=== PATIENT | male | born 1955 | race Caucasian/White ===

== ENCOUNTER 2017-09-23 21:51 | Inpatient (IN) | payer OTHER ==
[~2017-09-23] VITALS: Ht 175.3 cm; Wt 56.7 kg
[~2017-09-23 21:51] MED LIST: MOTRIN600 MG PO; PERCOCET 5/31 TABLET PO; PRILOSEC10 MG PO
[2017-09-24 00:34] LABS: BASOPHIL (%) 0.3 % (0-1); BASOPHIL COUNT 0.1 K/uL (0-0.1); EOSINOPHIL (%) 0.8 % (0-5); EOSINOPHIL COUNT 0.1 K/uL (0-0.3); HEMATOCRIT 41.4 % (38.0-50.0); HEMOGLOBIN 14.2 G/DL (12.5-16.6); IMMATURE GRANULOCYTE (%) 0.9 % (0.0-0.7); LYMPHOCYTE COUNT 1.5 K/uL (1.0-2.8); MCH 31.8 PG (29.0-34.0); MCHC 34.3 G/DL (30.0-36.0); MCV 92.8 FL (86-99); MONOCYTE (%) 12.1 % (3-12); MONOCYTE COUNT 1.8 K/uL (0-0.8); NEUTROPHIL (%) 75.9 % (45-76); NEUTROPHIL COUNT 11.5 K/uL (1.8-6.4); PLATELET COUNT 414 K/uL (156-360); RBC DIS.WIDTH-CV 12.1 % (11.8-14.6); RBC DIS.WIDTH-SD 41.7 % (39-53); RED BLOOD COUNT 4.46 M/uL (4.00-5.50); WHITE BLOOD COUNT 15.2 K/uL (4.1-10.2)
[2017-09-24 00:45] LABS: CHLORIDE 99 mEq/L (99-109); POTASSIUM 3.7 mEq/L (3.7-5.4); SODIUM 137 mEq/L (136-147)
[2017-09-24 00:47] LABS: GLUCOSE 204 mg/dL (70-99)
[2017-09-24 00:50] LABS: CREATININE 0.9 mg/dL (0.6-1.3); GFR ESTIMATE (CALCULATED) > 59 mL/min/ (58.99-99999)
[2017-09-24 00:51] LABS: UREA NITROGEN (BUN) 11 mg/dL (9-23)
[2017-09-24 05:54] VITALS: BP 141/64
[2017-09-24 07:32] VITALS: BP 112/65
[2017-09-24 16:02] VITALS: BP 123/65
[2017-09-24 22:49] VITALS: BP 115/59
[2017-09-25 06:26] LABS: BASOPHIL (%) 0.4 % (0-1); BASOPHIL COUNT 0.1 K/uL (0-0.1); EOSINOPHIL (%) 1.4 % (0-5); EOSINOPHIL COUNT 0.2 K/uL (0-0.3); HEMATOCRIT 37.7 % (38.0-50.0); HEMOGLOBIN 12.7 G/DL (12.5-16.6); IMMATURE GRANULOCYTE (%) 0.7 % (0.0-0.7); LYMPHOCYTE COUNT 1.5 K/uL (1.0-2.8); MCH 31.2 PG (29.0-34.0); MCHC 33.7 G/DL (30.0-36.0); MCV 92.6 FL (86-99); MONOCYTE (%) 11.9 % (3-12); MONOCYTE COUNT 1.4 K/uL (0-0.8); NEUTROPHIL (%) 73.6 % (45-76); NEUTROPHIL COUNT 8.9 K/uL (1.8-6.4); PLATELET COUNT 380 K/uL (156-360); RBC DIS.WIDTH-CV 12.1 % (11.8-14.6); RBC DIS.WIDTH-SD 41.5 % (39-53); RED BLOOD COUNT 4.07 M/uL (4.00-5.50)
[2017-09-25 06:45] VITALS: BP 142/80
[2017-09-25 06:53] LABS: ALBUMIN 2.8 G/DL (3.2-4.8); ALKALINE PHOSPHATASE 86 IU/L (3-129); ALT (GPT) 8 IU/L (3-49); AST (GOT) 13 IU/L (2-34); CHLORIDE 105 MEQ/L (99-109); CREATININE 0.8 MG/DL (0.6-1.3); GFR ESTIMATE (CALCULATED) > 59 mL/min/ (58.99-99999); GLUCOSE 130 mg/dL (70-99); POTASSIUM 3.5 MEQ/L (3.7-5.4); SODIUM 143 MEQ/L (136-147); TOTAL BILIRUBIN 0.4 MG/DL (0.0-1.0); UREA NITROGEN (BUN) 5 mg/dL (9-23)
[2017-09-25 11:03] LABS: HEMOGLOBIN A1c (GLYCOHEMOGLOB) 9.6 % (Below 5.7)
[2017-09-25 15:40] VITALS: BP 136/77
[2017-09-26 00:40] VITALS: BP 134/77
[2017-09-26 06:36] LABS: BASOPHIL (%) 0.3 % (0-1); EOSINOPHIL COUNT 0.1 K/uL (0-0.3); HEMATOCRIT 39.5 % (38.0-50.0); IMMATURE GRANULOCYTE (%) 0.6 % (0.0-0.7); LYMPHOCYTE COUNT 1.5 K/uL (1.0-2.8); MCH 30.7 PG (29.0-34.0); MCHC 32.9 G/DL (30.0-36.0); MCV 93.4 FL (86-99); MONOCYTE (%) 11.2 % (3-12); MONOCYTE COUNT 1.5 K/uL (0-0.8); NEUTROPHIL (%) 75.9 % (45-76); NEUTROPHIL COUNT 10.3 K/uL (1.8-6.4); PLATELET COUNT 395 K/uL (156-360); RBC DIS.WIDTH-CV 12.2 % (11.8-14.6); RBC DIS.WIDTH-SD 42.2 % (39-53); RED BLOOD COUNT 4.23 M/uL (4.00-5.50); WHITE BLOOD COUNT 13.5 K/uL (4.1-10.2)
[2017-09-26 06:55] VITALS: BP 130/84
[2017-09-26 07:11] LABS: ALKALINE PHOSPHATASE 97 IU/L (3-129); ALT (GPT) 8 IU/L (3-49); AST (GOT) 11 IU/L (2-34); CHLORIDE 104 MEQ/L (99-109); CREATININE 0.7 MG/DL (0.6-1.3); GFR ESTIMATE (CALCULATED) > 59 mL/min/ (58.99-99999); SODIUM 138 MEQ/L (136-147); TOTAL BILIRUBIN 0.4 MG/DL (0.0-1.0); TOTAL PROTEIN 6.5 G/DL (6.4-8.3); UREA NITROGEN (BUN) 5 mg/dL (9-23)
[2017-09-26 07:14] LABS: GLUCOSE 247 mg/dL (70-99); POTASSIUM 4.3 MEQ/L (3.7-5.4)
[2017-09-26 12:25] LABS: INTER. NORMALIZED RATIO 1.2
[2017-09-26 12:28] LABS: PTT 38.5 SEC (25-37)
[2017-09-27 00:14] VITALS: BP 95/61
[2017-09-27 07:30] VITALS: BP 109/59
[2017-09-28 06:33] LABS: BASOPHIL (%) 0.1 % (0-1); EOSINOPHIL (%) 0 % (0-5); HEMATOCRIT 39.8 % (38.0-50.0); HEMOGLOBIN 13.2 G/DL (12.5-16.6); IMMATURE GRANULOCYTE (%) 0.7 % (0.0-0.7); LYMPHOCYTE (%) 4.8 % (15-42); LYMPHOCYTE COUNT 1.2 K/uL (1.0-2.8); MCH 31.2 PG (29.0-34.0); MCHC 33.2 G/DL (30.0-36.0); MCV 94.1 FL (86-99); MONOCYTE COUNT 1.9 K/uL (0-0.8); NEUTROPHIL (%) 86.4 % (45-76); NEUTROPHIL COUNT 20.8 K/uL (1.8-6.4); PLATELET COUNT 380 K/uL (156-360); RBC DIS.WIDTH-CV 12.3 % (11.8-14.6); RBC DIS.WIDTH-SD 42.6 % (39-53); RED BLOOD COUNT 4.23 M/uL (4.00-5.50); WHITE BLOOD COUNT 24.1 K/uL (4.1-10.2)
[2017-09-28 06:47] LABS: ALKALINE PHOSPHATASE 91 IU/L (3-129); ALT (GPT) 9 IU/L (3-49); AST (GOT) 11 IU/L (2-34); CHLORIDE 101 MEQ/L (99-109); CREATININE 0.7 MG/DL (0.6-1.3); GFR ESTIMATE (CALCULATED) > 59 mL/min/ (58.99-99999); GLUCOSE 237 mg/dL (70-99); POTASSIUM 4.8 MEQ/L (3.7-5.4); SODIUM 137 MEQ/L (136-147); TOTAL BILIRUBIN 0.4 MG/DL (0.0-1.0); TOTAL PROTEIN 6.6 G/DL (6.4-8.3); UREA NITROGEN (BUN) 8 mg/dL (9-23)
[2017-09-28 12:07] VITALS: BP 118/68
[2017-09-28 17:23] VITALS: BP 111/67
[2017-09-28 19:33] VITALS: BP 122/59
[2017-09-29] VITALS (7 sets, daily range): BP systolic 98–132; BP diastolic 53–73
[2017-09-30 03:57] VITALS: BP 130/75
[2017-09-30 08:00] VITALS: BP 104/54
[2017-09-30 12:00] VITALS: BP 110/54
[2017-09-30 16:20] VITALS: BP 124/66
[2017-09-30 19:27] VITALS: BP 109/62
[2017-09-30 23:05] VITALS: BP 112/60
[2017-10-01 07:10] VITALS: BP 120/67
[2017-10-01 08:51] LABS: HEMATOCRIT 37.2 % (38.0-50.0); HEMOGLOBIN 12.4 G/DL (12.5-16.6); MCHC 33.3 G/DL (30.0-36.0); PLATELET COUNT 341 K/uL (156-360); RBC DIS.WIDTH-CV 12.1 % (11.8-14.6); RBC DIS.WIDTH-SD 41.6 % (39-53)
[2017-10-01 09:20] LABS: ALBUMIN 2.9 G/DL (3.2-4.8); ALT (GPT) 14 IU/L (3-49); CHLORIDE 103 MEQ/L (99-109); CREATININE 0.6 MG/DL (0.6-1.3); GFR ESTIMATE (CALCULATED) > 59 mL/min/ (58.99-99999); GLUCOSE 195 mg/dL (70-99); SODIUM 138 MEQ/L (136-147); TOTAL PROTEIN 6.8 G/DL (6.4-8.3); UREA NITROGEN (BUN) 6 mg/dL (9-23)
[2017-10-01 09:26] LABS: ALKALINE PHOSPHATASE 168 IU/L (3-129); AST (GOT) 20 IU/L (2-34); POTASSIUM 3.7 MEQ/L (3.7-5.4); TOTAL BILIRUBIN 0.6 MG/DL (0.0-1.0)
[2017-10-01 16:18] VITALS: BP 143/78
[2017-10-01 19:18] VITALS: BP 118/62
[2017-10-01 23:03] VITALS: BP 104/57
[2017-10-02 03:42] VITALS: BP 115/56
[2017-10-02 05:55] LABS: BASOPHIL (%) 0.3 % (0-1); BASOPHIL COUNT 0.1 K/uL (0-0.1); EOSINOPHIL (%) 0.8 % (0-5); EOSINOPHIL COUNT 0.1 K/uL (0-0.3); HEMATOCRIT 37.4 % (38.0-50.0); HEMOGLOBIN 12.4 G/DL (12.5-16.6); IMMATURE GRANULOCYTE (%) 0.5 % (0.0-0.7); LYMPHOCYTE (%) 9.4 % (15-42); LYMPHOCYTE COUNT 1.6 K/uL (1.0-2.8); MCHC 33.2 G/DL (30.0-36.0); MCV 93.5 FL (86-99); MONOCYTE (%) 11.5 % (3-12); NEUTROPHIL (%) 77.5 % (45-76); NEUTROPHIL COUNT 13.5 K/uL (1.8-6.4); PLATELET COUNT 367 K/uL (156-360); RBC DIS.WIDTH-SD 41.7 % (39-53); WHITE BLOOD COUNT 17.4 K/uL (4.1-10.2)
[2017-10-02 07:11] VITALS: BP 116/60
[2017-10-02 10:09] LABS: CHLORIDE 104 MEQ/L (99-109); CREATININE 0.6 MG/DL (0.6-1.3); GFR ESTIMATE (CALCULATED) > 59 mL/min/ (58.99-99999); POTASSIUM 3.8 MEQ/L (3.7-5.4); SODIUM 139 MEQ/L (136-147); UREA NITROGEN (BUN) 8 mg/dL (9-23)
[2017-10-02 10:14] LABS: GLUCOSE 58 mg/dL (70-99)
[2017-10-02 11:30] VITALS: BP 118/70
[2017-10-02 15:26] VITALS: BP 115/60
[2017-10-02 20:00] VITALS: BP 132/65
[2017-10-03 00:45] VITALS: BP 117/60
[2017-10-03 03:26] VITALS: BP 99/56
[2017-10-03 07:11] VITALS: BP 89/58
[2017-10-03 11:43] VITALS: BP 133/75
[2017-10-03] MEDS ORDERED: OXYCODONE H5 MG/5 ML PO (12:30)
[2017-10-03] MEDS ORDERED: FOLIC ACID1 MG PO (12:30)
[2017-10-03] MEDS ORDERED: THIAMINE HCL100 MG PO (12:30)
[2017-10-03 15:59] VITALS: BP 149/75
[2017-10-04 00:45] VITALS: BP 132/72
[2017-10-04 08:08] VITALS: BP 122/61
[2017-10-04 11:49] LABS: HEMATOCRIT 38.1 % (38.0-50.0); HEMOGLOBIN 12.5 G/DL (12.5-16.6); MCH 31.2 PG (29.0-34.0); MCHC 32.8 G/DL (30.0-36.0); PLATELET COUNT 331 K/uL (156-360); RBC DIS.WIDTH-CV 12.1 % (11.8-14.6); RBC DIS.WIDTH-SD 42.3 % (39-53); RED BLOOD COUNT 4.01 M/uL (4.00-5.50); WHITE BLOOD COUNT 14.5 K/uL (4.1-10.2)
[2017-10-04] MEDS ORDERED: NOVOLOG 10100 UNITS/ SC (14:04)
[2017-10-04 17:26] VITALS: BP 156/72
[2017-10-04 23:30] VITALS: BP 107/62
[2017-10-05 08:14] VITALS: BP 110/57
[2017-10-05 08:41] LABS: HEMATOCRIT 39.9 % (38.0-50.0); HEMOGLOBIN 13.2 G/DL (12.5-16.6); MCH 30.9 PG (29.0-34.0); MCHC 33.1 G/DL (30.0-36.0); MCV 93.4 FL (86-99); PLATELET COUNT 325 K/uL (156-360); RBC DIS.WIDTH-CV 12.2 % (11.8-14.6); RBC DIS.WIDTH-SD 42.2 % (39-53); RED BLOOD COUNT 4.27 M/uL (4.00-5.50); WHITE BLOOD COUNT 9.8 K/uL (4.1-10.2)
[2017-10-05 09:15] LABS: CHLORIDE 96 MEQ/L (99-109); CREATININE 0.8 MG/DL (0.6-1.3); GFR ESTIMATE (CALCULATED) > 59 mL/min/ (58.99-99999); GLUCOSE 186 mg/dL (70-99); POTASSIUM 4.1 MEQ/L (3.7-5.4); SODIUM 136 MEQ/L (136-147); UREA NITROGEN (BUN) 9 mg/dL (9-23)
[2017-10-05 15:00] VITALS: BP 115/61
[2017-10-06 00:48] VITALS: BP 116/58
[2017-10-06 07:06] LABS: CHLORIDE 99 MEQ/L (99-109); CREATININE 0.8 MG/DL (0.6-1.3); GFR ESTIMATE (CALCULATED) > 59 mL/min/ (58.99-99999); GLUCOSE 244 mg/dL (70-99); POTASSIUM 4.6 MEQ/L (3.7-5.4); SODIUM 136 MEQ/L (136-147); UREA NITROGEN (BUN) 15 mg/dL (9-23)
[2017-10-06 07:40] VITALS: BP 109/55
[2017-10-06 07:52] LABS: HEMATOCRIT 46.3 % (38.0-50.0); MCH 30.8 PG (29.0-34.0); MCV 93.3 FL (86-99); PLATELET COUNT 246 K/uL (156-360); RBC DIS.WIDTH-CV 12.2 % (11.8-14.6); RED BLOOD COUNT 4.96 M/uL (4.00-5.50); WHITE BLOOD COUNT 7.4 K/uL (4.1-10.2)
[2017-10-06 07:54] LABS: HEMOGLOBIN 15.3 G/DL (12.5-16.6)
[2017-10-06] MEDS ORDERED: NICOTINE PATCH1 EAC2 TD (10:33)
[2017-10-06] MEDS ORDERED: DUONEB 2.5-0.5 M3 ML AEROSOL (10:33)
[2017-10-06] MEDS ORDERED: PREDNISONE10 MG PO (10:39)
[2017-10-06] MEDS ORDERED: LEVAQUIN750 MG PO (10:41)
[2017-10-06 15:50] VITALS: BP 140/70
[2017-10-06 23:33] VITALS: BP 134/86
[2017-10-07 07:30] VITALS: BP 117/84
[2017-10-07 16:15] VITALS: BP 138/84
[2017-10-07 23:12] VITALS: BP 135/73
[2017-10-08 07:20] VITALS: BP 129/78
[2017-10-08] MEDS ORDERED: POLYETHYLENE GL17 GM PO (12:20)
[2017-10-08] MEDS ORDERED: LEVOFLOXACIN750 MG PO (12:20)
[2017-10-08] MEDS ORDERED: GLUCOPHAGE500 MG PO (12:20)
[2017-10-08] MEDS ORDERED: CHLORHEXIDINE473 ML MM (12:20)
== END 2017-10-08 15:35 | DRG 11 ==
LOC: EME 21:51 → 5EAST 09-24 04:47 → EDOF 09-24 04:47 → ENRESERV 09-24 04:50 → 5EAST 09-24 05:41 → ENRESERV 09-27 16:15 → 4WEST 09-27 17:21 → ENRESERV 09-27 17:22 → 4WEST 09-27 17:50 → ENRESERV 09-27 17:51 → 4WEST 09-27 17:51 → ENRESERV 09-27 17:54 → 5EAST 09-27 17:56 → ENRESERV 09-27 18:33 → 5EAST 09-27 21:00 → 4WEST 09-27 21:01 → ENRESERV 09-28 08:02 → 2SOUTH 09-28 11:01 → 4EAST 09-28 11:43 → ENRESERV 09-30 11:54 → 5EAST 09-30 15:22 → ENPENDDIS 10-08 → 5EAST 10-08 15:35
PROVIDERS: Emergency Medicine; Hospitalist; Physician Assistant Medical; Radiology Diagnostic Radiology
DX: D00.07 Carcinoma in situ of tongue (principal); F17.210 Nicotine dependence, cigarettes, uncomplicated; E11.649 Type 2 diabetes mellitus with hypoglycemia without coma; R09.02 Hypoxemia; J44.1 Chronic obstructive pulmonary disease with (acute) exacerbation; J44.0 Chronic obstructive pulmonary disease with (acute) lower respiratory infection; J18.9 Pneumonia, unspecified organism; B95.61 Methicillin susceptible Staphylococcus aureus infection as the cause of diseases classified elsewhere; Z79.4 Long term (current) use of insulin; Z68.1 Body mass index [BMI] 19.9 or less, adult; R13.10 Dysphagia, unspecified; R63.4 Abnormal weight loss; Z79.899 Other long term (current) drug therapy; K21.9 Gastro-esophageal reflux disease without esophagitis; F10.20 Alcohol dependence, uncomplicated; D64.9 Anemia, unspecified; K59.02 Outlet dysfunction constipation; R59.9 Enlarged lymph nodes, unspecified
CPT/HCPCS: 70491; 70543; 71046; 71260; 74018; 74177; 74230; 76942; 80048; 80053; 82948; 83036; 85025; 85027; 85610; 85730; 87070; 87077; 87081; 87147; 87186; 87205; 87493; 87502; 87651 90; 88305; 88331; 92526 GN; 92610 GN; 92611 GN; 94640; 94640 76; 94799; 99202; 99281; 99285; J0690; J1100; J1170; J1644; J1815; J1956; J2250; J2405; J3010; J3480; J7030; J7120; J7512; J7643

== ENCOUNTER 2017-10-31 10:15 | Emergency (ER) | payer OTHER ==
[~2017-10-31] VITALS: Ht 172.7 cm; Wt 48.5 kg
[~2017-10-31 10:15] MED LIST changes: +CHLORHEXIDINE473 ML MM; +DUONEB 2.5-0.5 M3 ML AEROSOL; +FOLIC ACID1 MG PO; +GLUCOPHAGE500 MG PO; +LEVAQUIN750 MG PO; +LEVOFLOXACIN750 MG PO; +NICOTINE PATCH1 EAC2 TD; +NOVOLOG 10100 UNITS/ SC; +OXYCODONE H5 MG/5 ML PO; +POLYETHYLENE GL17 GM PO; +PREDNISONE10 MG PO; +THIAMINE HCL100 MG PO
[2017-10-31 10:45] LABS: BASOPHIL (%) 0.1 % (0-1); EOSINOPHIL (%) 1.4 % (0-5); EOSINOPHIL COUNT 0.1 K/uL (0-0.3); HEMATOCRIT 33.9 % (38.0-50.0); HEMOGLOBIN 11.7 G/DL (12.5-16.6); IMMATURE GRANULOCYTE (%) 0.2 % (0.0-0.7); LYMPHOCYTE (%) 15.3 % (15-42); LYMPHOCYTE COUNT 1.3 K/uL (1.0-2.8); MCH 32.1 PG (29.0-34.0); MCHC 34.5 G/DL (30.0-36.0); MCV 92.9 FL (86-99); MONOCYTE (%) 13.9 % (3-12); MONOCYTE COUNT 1.2 K/uL (0-0.8); NEUTROPHIL (%) 69.1 % (45-76); NEUTROPHIL COUNT 6.1 K/uL (1.8-6.4); PLATELET COUNT 334 K/uL (156-360); RBC DIS.WIDTH-CV 12.3 % (11.8-14.6); RBC DIS.WIDTH-SD 41.9 % (39-53); RED BLOOD COUNT 3.65 M/uL (4.00-5.50); WHITE BLOOD COUNT 8.8 K/uL (4.1-10.2)
[2017-10-31 10:50] LABS: CHLORIDE 98 mEq/L (99-109); POTASSIUM 4.5 mEq/L (3.7-5.4); SODIUM 134 mEq/L (136-147)
[2017-10-31 10:52] LABS: GLUCOSE 259 mg/dL (70-99)
[2017-10-31 10:54] LABS: INTER. NORMALIZED RATIO 1.3
[2017-10-31 10:56] LABS: CREATININE 0.8 mg/dL (0.6-1.3); GFR ESTIMATE (CALCULATED) > 59 mL/min/ (58.99-99999)
[2017-10-31 10:57] LABS: UREA NITROGEN (BUN) 18 mg/dL (9-23)
[2017-10-31 13:00] VITALS: BP 122/70
== END 2017-10-31 13:00 | disposition home or self-care (01) ==
LOC: EME 10:15
PROVIDERS: Emergency Medicine
DX: J95.01 Hemorrhage from tracheostomy stoma (principal); Z85.810 Personal history of malignant neoplasm of tongue; E11.9 Type 2 diabetes mellitus without complications; Z79.84 Long term (current) use of oral hypoglycemic drugs; F17.200 Nicotine dependence, unspecified, uncomplicated
CPT/HCPCS: 70498; 71045; 80048; 85025; 85610; 94799; 99281; 99285